=== PATIENT | male | born 1970 | race Caucasian/White ===

== ENCOUNTER 2018-04-29 08:57 | Observation (INO) | payer OTHER ==
[~2018-04-29] VITALS: Ht 162.6 cm; Wt 101.8 kg
[~2018-04-29 08:57] MED LIST: ALTACE10 MG PO; AMLODIPINE BESY10 MG PO; PANTOPRAZOLE SO40 MG PO
--- OUTSIDE RECORDS SUMMARY | 2018-04-29 09:00 | XMS REPORT | Clinical Summary ---
Author Author [facility] Address Unknown Phone Unavailable Care Team Providers Care Braille Translator Name Role Phone Asked, No Pcp PCP Unavailable Allergies No Known Allergies Medications End Date Status Medication Sig Dispensed Refills Start Date Active ramipril (ALTACE) 10 MG Take 10 mg by 0 capsule mouth daily. Active amLODIPine (NORVASC) 10 Take 10 mg by 0 mg tablet mouth daily. Active pantoprazole (PROTONIX) Take 20 mg by 0 20 MG EC tablet mouth daily. 12/22/2017 Discontinued acetaminophen-codeine TAKE ONE (1) 0 11/03/201 (TYLENOL WITH CODEINE #3) TABLET(S) BY 8 300-30 mg per tablet MOUTH EVERY FOUR TO SIX HOURS NEEDED FOR PAIN. 12/22/2017 Discontinued IBU 600 mg tablet TAKE ONE (1) 0 11/03/201 TABLET(S) BY 8 MOUTH EVERY EIGHT HOURS NEEDED FOR PAIN. 01/12/2018 Discontinued HYDROcodone-acetaminophen TAKE ONE (1) 0 (NORCO) 5-325 mg per TABLET(S) BY 8 tablet MOUTH EVERY FOUR HOURS NEEDED FOR PAIN. Active Problems Problem Noted Date Chondromalacia of left knee 12/22/2017 S/P arthroscopy of left knee 12/22/2017 Follow-up examination after orthopedic surgery 12/22/2017 Acute pain of left knee 11/25/2017 Work related injury 11/25/2017 Obesity (BMI 37.76) 11/25/2017 Acute lateral meniscus tear of left knee 11/25/2017 Acute internal derangement of left knee 11/25/2017 Encounters Care Team Description Date Type Specialty Oswaldo Feldman MD 02/21/2018 Telephone Orthopedic Surgery Oswaldo Feldman MD Acute pain of left knee (Primary Dx); Acute lateral meniscus tear of left knee, subsequent encounter; Acute internal derangement of left knee; Follow-up examination after orthopedic surgery; Work related injury; Chondromalacia of left knee; Obesity (BMI 37.76) 01/12/2018 Office Visit Orthopedic Surgery Oswaldo Feldman MD Chondromalacia of left knee (Primary Dx); Acute internal derangement of left knee; Work related injury; S/P arthroscopy of left knee; Follow-up examination after orthopedic surgery; Obesity (BMI 37.76) 12/22/2017 Office Visit Orthopedic Surgery Westley Mark MD 12/15/2017 Anesthesia General Surgery Event Oswaldo Feldman MD ARTHROSCOPY KNEE WITH PARTIAL SENOVECTOMY, NOTCHPLASTY, AND CHONDROPLASTY OF INTERIOR FEMUR - LEFT 12/15/2017 Surgery General Surgery Oswaldo Feldman MD 12/15/2017 Hospital General Surgery Encounter Oswaldo Feldman MD Preop testing 12/10/2017 Hospital Radiology Encounter Oswaldo Feldman MD Preop testing (Primary Dx) 12/10/2017 Pre-Admit Pre-Admission Testing Testing Appointment Oswaldo Feldman MD 12/06/2017 Prep for Orthopedic Surgery Surgery Oswalod Feldman MD Acute pain of left knee (Primary Dx); Work related injury; Obesity (BMI 37.76); Acute lateral meniscus tear of left knee, initial encounter; Acute internal derangement of left knee 11/25/2017 Office Visit Orthopedic Surgery after 04/28/2017 Family History Medical History Relation Name Comments Cancer Father Hypertension Father Arthritis Mother Relation Name Status Comments Father Mother Social History Date Tobacco Use Types Packs/Day Years Used Quit: 2013 Former Smoker 1 20 Smokeless Tobacco: Never Used Comments: vapes with 3% 1X month Alcohol Use Drinks/Week oz/Week Comments Yes 1X month Sex Assigned at Date Recorded Not on file Industry Job Start Date Occupation Not on file Not on file Not on file Travel End Travel History Travel Start No recent travel history available. Last Filed Vital Signs Time Taken Vital Sign Reading 12/15/2017 12:45 PM CDT Blood Pressure 119/67 12/15/2017 12:45 PM CDT Pulse 70 12/15/2017 12:45 PM CDT Temperature 36.4 C (97.6 F) 12/15/2017 12:45 PM CDT Respiratory Rate 13 12/15/2017 12:45 PM CDT Oxygen Saturation 97% - Inhaled Oxygen - Concentration 01/12/2018 1:10 PM CDT Weight 98.4 kg (217 lb) 01/12/2018 1:10 PM CDT Height 162.6 cm (5' 4") 01/12/2018 1:10 PM CDT Body Mass Index 37.25 Plan of Treatment Health Maintenance Due Date Last Done Comments INFLUENZA VACCINE 11/10/2017 Procedures Comments Procedure Name Priority Date/Time Associated Diagnosis LA AN ELECTIVE Routine 12/15/2017 SUPRAGLOTTIC AIRWAY 11:06 AM CDT Procedure Note - Sweetie Cheney MD - 12/15/2017 11:06 AM CDT Airway Date/Time: 12/15/2017 10:55 AM Performed by: SWEETIE CHENEY Authorized by: SWEETIE CHENEY Location: OR Urgency: Elective Anesthesio logist: SWEETIE CHENEY Performed by: anesthesio logist Preoxygena baldev with 100% O2: Yes C-spine Precaution s Maintained Throughout : Yes Mask Ventilatio n: Easy mask Final Airway Type: Supraglott ic airway Final LMA: Unique LMA Size: 4 Number of Attempts at Approach: 1 OPERATION, KNEE, 12/15/2017 ACL graft tear, sequela ARTHROSCOPIC 10:25 AM CDT XR CHEST 2 VW Routine 12/10/2017 Preop testing 3:23 PM CDT ECG 12-LEAD Routine 12/10/2017 Preop testing 2:16 PM CDT URINE CULTURE Routine 12/10/2017 2:00 PM CDT ZZESTIMATED GFR Routine 12/10/2017 1:43 PM CDT URINALYSIS SCREEN AND Routine 12/10/2017 Preop testing MICROSCOPY, WITH REFLEX 1:43 PM CDT TO CULTURE PARTIAL THROMBOPLASTIN Routine 12/10/2017 Preop testing TIME (PTT) 1:43 PM CDT PROTHROMBIN TIME WITH INR Routine 12/10/2017 Preop testing 1:43 PM CDT COMPREHENSIVE METABOLIC Routine 12/10/2017 Preop testing PANEL 1:43 PM CDT HC COMPLETE BLD COUNT Routine 12/10/2017 Preop testing W/AUTO DIFF 1:43 PM CDT XR KNEE 4+ VW LEFT Routine 11/25/2017 Acute pain of left knee 8:53 AM CDT after 04/28/2017 Results * XR Chest 2 Vw (12/10/2017 3:23 PM CDT) Narrative Performed At EXAMINATION:XR CHEST 2 VW [facility] CLINICAL HISTORY: Z01.818 Encounter for other preprocedural examination, Shortness of breath, pre op clearance COMPARISON:02/23/2013 IMPRESSION: No active disease in the chest. Lungs are clear. Cardiomediastinal silhouette is within normal limits. No effusion or pneumothorax noted. Visualized osseous structures are intact. [facility]-[id number] Procedure Note Interface, Radiology Results Incoming - 12/10/2017 3:42 PM CDT EXAMINATION: XR CHEST 2 VW CLINICAL HISTORY: Z01.818 Encounter for other preprocedural examination, Shortness of breath, pre op clearance COMPARISON: 02/23/2013 IMPRESSION: No active disease in the chest. Lungs are clear. Cardiomediastinal silhouette is within normal limits. No effusion or pneumothorax noted. Visualized osseous structures are intact. [facility]-[id number] Performing Organization Address [facility] Phone Number [facility] [address] [place] [address] * ECG 12 lead (12/10/2017 2:16 PM CDT) Ventricular rate 83 [facility] Atrial rate 83 [facility] LA interval 136 [facility] QRSD interval 98 [facility] QT interval 374 [facility] QTC interval 439 [facility] P axis 1 53 [facility] QRS axis 1 69 [facility] T wave axis 26 [facility] EKG impression Normal sinus rhythm-Normal [facility] MUSE ECG-In automated comparison with ECG of 20-JAN-2014 11:29,-Questionable change in QRS axis- Performing Organization Address [facility] Phone Number [facility] [employer] [address] [place] [address] * Urine culture (12/10/2017 2:00 PM CDT) Urine culture SEE COMMENTComment: [facility] DEPARTMENT OF Bacteriuria screen negative. PATHOLOGY AND GENOMIC MEDICINE Performing Organization Address City/[facility]/Zipcode Phone Number [place] [address] [place] [address] PATHOLOGY AND GENOMIC MEDICINE * Urinalysis screen and microscopy, with reflex to culture (12/10/2017 1:43 PM CDT) Specimen site Clean catch [facility] DEPARTMENT OF PATHOLOGY AND GENOMIC MEDICINE Color, UA Yellow [facility] DEPARTMENT OF PATHOLOGY AND GENOMIC MEDICINE Appearance, UA Clear [facility] DEPARTMENT OF PATHOLOGY AND GENOMIC MEDICINE Specific gravity, UA 1.029 1.001 - 1.035 [facility] DEPARTMENT OF PATHOLOGY AND GENOMIC MEDICINE pH, UA 5.0 5.0 - 8.5 [facility] DEPARTMENT OF PATHOLOGY AND GENOMIC MEDICINE Protein, UA Negative Negative [facility] DEPARTMENT OF PATHOLOGY AND GENOMIC MEDICINE Glucose, UA Negative Negative [facility] DEPARTMENT OF PATHOLOGY AND GENOMIC MEDICINE Ketones, UA Negative Negative [facility] DEPARTMENT OF PATHOLOGY AND GENOMIC MEDICINE Bilirubin, UA Negative Negative [facility] DEPARTMENT OF PATHOLOGY AND GENOMIC MEDICINE Blood, UA Small (A) Negative [facility] DEPARTMENT OF PATHOLOGY AND GENOMIC MEDICINE Nitrite, UA Negative Negative [facility] DEPARTMENT OF PATHOLOGY AND GENOMIC MEDICINE Urobilinogen, UA Negative <2.0 [facility] DEPARTMENT OF PATHOLOGY AND GENOMIC MEDICINE Leukocyte esterase, UA Negative Negative [facility] DEPARTMENT OF PATHOLOGY AND GENOMIC MEDICINE WBC, UA 1 0 - 1 /HPF [facility] DEPARTMENT OF PATHOLOGY AND GENOMIC MEDICINE RBC, UA 5 (A) 0 - 5 /HPF [facility] DEPARTMENT OF PATHOLOGY AND GENOMIC MEDICINE Bacteria, UA None seen None seen [facility] DEPARTMENT OF PATHOLOGY AND GENOMIC MEDICINE Yeast, UA None seen [facility] DEPARTMENT OF PATHOLOGY AND GENOMIC MEDICINE Yeast with pseudohyphae, None seen [facility] DEPARTMENT OF UA PATHOLOGY AND GENOMIC MEDICINE Calcium oxalate crystals, Few [facility] DEPARTMENT OF UA PATHOLOGY AND GENOMIC MEDICINE Specimen Urine Performing Organization Address City/State/Zipcode Phone Number [place] [address] [place] [address] PATHOLOGY AND GENOMIC MEDICINE * Estimated GFR (12/10/2017 1:43 PM CDT) GFR Non Af Amer >90 mL/min/1.73 m2 [facility] DEPARTMENT OF PATHOLOGY AND GENOMIC MEDICINE GFR Af Amer >90 mL/min/1.73 m2 [facility] DEPARTMENT OF Comment: PATHOLOGY AND Chronic kidney disease: <60 GENOMIC MEDICINE mL/min/1.73m2 Kidney failure: <15 mL/min/1.73m2 The estimated GFR is calculated from the IDTN-traceable Modification of Diet in Renal Disease Equation. The accuracy of the calculation is poor when the creatinine is normal. Calculated values >90 mL/min/1.73m2 are not reported. This equation has not been validated in children (<18 years), women, the elderly (>70 years), or ethnic groups other than Caucasians and Americans. Specimen Plasma specimen Performing Organization Address City/[facility] Phone Number [facility] [place] [address] PATHOLOGY AND [facility] * Partial thromboplastin time, activated (12/10/2017 1:43 PM CDT) PTT 31.8 23.0 - 36.0 sec [facility] DEPARTMENT OF Comment: PATHOLOGY AND PTT therapeutic range for GENOMIC MEDICINE unfractionated heparin is 61.0-112.0 seconds which corresponds to Anti-Xa 0.3-0.7 U/ml. Note:Change in Panic Value The PTT Panic Value is changing from 110 sec. to 100 sec. due to new instrumentation and reagents. Correlation studies have been performed to validate this result. Specimen Blood Performing Organization Address [facility] Phone Number [facility] [address] [place] [address] PATHOLOGY AND [facility] * Prothrombin time with INR (12/10/2017 1:43 PM CDT) Prothrombin time 12.8 12.0 - 15.0 sec [facility] DEPARTMENT OF PATHOLOGY AND [facility] INR 0.95 0.92 - 1.12 [facility] DEPARTMENT OF Comment: PATHOLOGY AND For patients on anticoagulant GENOMIC MEDICINE therapy, reference ranges below: Indication: INR Value Treatment of Venous Thrombosis, 2.0-3.0 pulmonary emboli, or prophylaxis of a venous thrombosis, or systemic emboli. High dose, high risk patients 3.0-4.5 with mechanical valves. NOTE:INR values over 3.0 are sometimes associated with gastrointestinal hemorrhage, especially values over 4.0. Specimen Blood Performing Organization Address [facility] Cent[facility]ode Phone Number [facility] DEPARTMENT OF [address] [place] [address] PATHOLOGY AND [facility] * CBC with platelet and differential (12/10/2017 1:43 PM CDT) WBC 9.4 4.2 - 11.0 k/uL [facility] DEPARTMENT OF PATHOLOGY AND GENOMIC MEDICINE RBC 5.04 4.04 - 5.86 m/uL [facility] DEPARTMENT OF PATHOLOGY AND GENOMIC MEDICINE HGB 15.9 13.0 - 17.3 g/dL [facility] DEPARTMENT OF PATHOLOGY AND GENOMIC MEDICINE HCT 47.1 (H) 34.0 - 45.0 % [facility] DEPARTMENT OF PATHOLOGY AND GENOMIC MEDICINE MCV 93.5 80.0 - 98.0 fL [facility] DEPARTMENT OF PATHOLOGY AND GENOMIC MEDICINE MCH 31.5 27.0 - 34.0 pg [facility] DEPARTMENT OF PATHOLOGY AND GENOMIC MEDICINE MCHC 33.8 31.5 - 36.5 g/dL [facility] DEPARTMENT OF PATHOLOGY AND GENOMIC MEDICINE RDW - SD 44.6 37.0 - 51.0 fL [facility] DEPARTMENT OF PATHOLOGY AND GENOMIC MEDICINE MPV 10.2 7.4 - 10.4 fL [facility] DEPARTMENT OF PATHOLOGY AND GENOMIC MEDICINE Platelet count 209 150 - 400 k/uL [facility] DEPARTMENT OF PATHOLOGY AND GENOMIC MEDICINE Nucleated RBC 0.00 /100 WBC [facility] DEPARTMENT OF PATHOLOGY AND GENOMIC MEDICINE Neutrophils 72.1 (H) 36.0 - 66.0 % [facility] DEPARTMENT OF PATHOLOGY AND GENOMIC MEDICINE Lymphocytes 17.8 (L) 24.0 - 44.0 % [facility] DEPARTMENT OF PATHOLOGY AND GENOMIC MEDICINE Monocytes 7.2 (H) 0.0 - 6.0 % [facility] DEPARTMENT OF PATHOLOGY AND GENOMIC MEDICINE Eosinophils 1.7 0.0 - 6.0 % [facility] DEPARTMENT OF PATHOLOGY AND GENOMIC MEDICINE Basophils 0.7 0.0 - 1.2 % [facility] DEPARTMENT OF PATHOLOGY AND GENOMIC MEDICINE Immature granulocytes 0.5 0.0 - 1.0 % [facility] DEPARTMENT OF PATHOLOGY AND GENOMIC MEDICINE Specimen Blood Performing Organization Address City/State/Zipcode Phone Number [facility] [address] [place] [address] PATHOLOGY AND GENOMIC MEDICINE * Comprehensive metabolic panel (12/10/2017 1:43 PM CDT) Sodium 139 135 - 150 mEq/L [facility] DEPARTMENT OF PATHOLOGY AND GENOMIC MEDICINE Potassium 3.8 3.5 - 5.0 mEq/L [facility] DEPARTMENT OF PATHOLOGY AND GENOMIC MEDICINE Chloride 103 98 - 112 mEq/L [facility] DEPARTMENT OF PATHOLOGY AND GENOMIC MEDICINE CO2 25 24 - 31 mmol/L [facility] DEPARTMENT OF PATHOLOGY AND GENOMIC MEDICINE Anion gap 11@ANIO 7 - 15 mEq/L [facility] DEPARTMENT OF PATHOLOGY AND GENOMIC MEDICINE BUN 15 7 - 18 mg/dL [facility] DEPARTMENT OF PATHOLOGY AND GENOMIC MEDICINE Creatinine 0.90 0.70 - 1.20 mg/dL [facility] DEPARTMENT OF PATHOLOGY AND GENOMIC MEDICINE Glucose 134 (H) 65 - 100 mg/dL [facility] DEPARTMENT OF PATHOLOGY AND GENOMIC MEDICINE Calcium 9.0 8.3 - 10.2 mg/dL [facility] DEPARTMENT OF PATHOLOGY AND GENOMIC MEDICINE Protein 7.0 6.3 - 8.3 g/dL [facility] DEPARTMENT OF PATHOLOGY AND GENOMIC MEDICINE Albumin 4.1 3.5 - 5.0 g/dL [facility] DEPARTMENT OF PATHOLOGY AND GENOMIC MEDICINE A/G ratio 1.4 0.7 - 3.8 [facility] DEPARTMENT OF PATHOLOGY AND GENOMIC MEDICINE Alkaline phosphatase 103 0 - 129 U/L [facility] DEPARTMENT OF PATHOLOGY AND GENOMIC MEDICINE AST 34 10 - 50 U/L [facility] DEPARTMENT OF PATHOLOGY AND GENOMIC MEDICINE ALT 47 5 - 50 U/L [facility] DEPARTMENT OF PATHOLOGY AND GENOMIC MEDICINE Total bilirubin 0.4 0.2 - 1.2 mg/dL [facility] DEPARTMENT OF PATHOLOGY AND GENOMIC MEDICINE Specimen Plasma specimen Performing Organization Address City/State/[facility]ode Phone Number [facility] DEPARTMENT OF [address] [place] [address] PATHOLOGY AND GENOMIC MEDICINE * XR Knee 4+ Vw Left (11/25/2017 8:53 AM CDT) Narrative Performed At [facility] Weightbearing AP and PA x-rays on both knees with a lateral x-ray of the left knee: There is evidence of an ACL reconstruction but there is no hardware in either the tibia or femur. Tunnels appear to be well positioned. There is very minimal arthritic change with well-maintained joint space Performing Organization Address City/State/Zipcode Phone Number [facility] [address] [place] [address] after 04/28/2017 Insurance Payer Benefit Subscriber ID Type Phone Address Plan / Group WORKERS COMP ABERCROMBI xxxxxxx Workers E MCDERMOTT Comp & W/C Advance Directives Patient has advance care planning documents on file. For more information, demetrice conroy contact: Olu Cates [address] [place] [address]
[2018-04-29] MEDS ORDERED: CEFOXITIN SOD 1 GM VIAL ONE (09:23)
[2018-04-29] MEDS ORDERED: IOPAMIDOL 610MG/1ML 300 MG/ML VIAL IV ONE (09:46)
[2018-04-29] MEDS ORDERED: LIDOCAINE HCL 2% LOCAL INJ 5 ML SDV VIAL INJ ONE (10:39)
[2018-04-29] MEDS ORDERED: EPHEDRINE SULFATE INJ 50 MG/10 ML SYR ONE (10:39)
[2018-04-29] MEDS ORDERED: PROPOFOL IV EMULSION 10 MG/ML 20 ML VIAL ONE (10:39)
[2018-04-29] MEDS ORDERED: SEVOFLURANE INHAL SOLN 250 ML PEN BTL ONE (10:39)
[2018-04-29] MEDS ORDERED: ONDANSETRON HCL INJ 2MG/ML 2ML 2 MG/ML VIAL ONE (10:39)
[2018-04-29] MEDS ORDERED: FENTANYL CITRATE/PF 100MCG/2 ML INJ ONE ×2 (11:01→15:35)
--- OUTSIDE RECORDS SUMMARY | 2018-04-29 11:21 | XMS REPORT | Clinical Summary ---
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 Visualized osseous structures are intact. [facility]-[id number] Procedure Note Interface, Radiology Results Incoming - 12/10/2017 3:42 PM CDT EXAMINATION: XR CHEST 2 VW CLINICAL HISTORY: Z01.818 Encounter for other preprocedural examination, Shortness of breath, pre op clearance COMPARISON: 02/23/2013 IMPRESSION: No active disease in the chest. Lungs are clear. Cardiomediastinal silhouette is within normal limits. No effusion or pneumothorax noted. Visualized osseous structures are intact. [id number] Performing Organization Address [facility] Phone Number [facility] [address] [place] [address] * ECG 12 lead (12/10/2017 2:16 PM CDT) Ventricular rate 83 [facility] MUSE Atrial rate 83 [facility] MUSE [place] interval 136 [facility] QRSD interval 98 [facility] QT interval 374 [facility] QTC interval 439 [facility] P axis 1 53 [facility] QRS axis 1 69 [facility] T wave axis 26 [facility] EKG impression Normal sinus rhythm-Normal [facility] MUSE ECG-In automated comparison with ECG of 20-JAN-2014 11:29,-Questionable change in QRS axis- Performing Organization Address [facility] Phone Number [facility] [address] [place] [address] * Urine culture (12/10/2017 2:00 PM CDT) Urine culture SEE COMMENTComment: [facility] DEPARTMENT OF Bacteriuria screen negative. PATHOLOGY AND GENOMIC MEDICINE Performing Organization Address City/[facility]/Zipcode Phone Number [address] [address] [place] [address] PATHOLOGY AND GENOMIC MEDICINE * Urinalysis screen and microscopy, with reflex to culture (12/10/2017 1:43 PM CDT) Specimen site Clean catch [facility] DEPARTMENT OF PATHOLOGY AND GENOMIC MEDICINE Color, UA Yellow [facility] DEPARTMENT OF PATHOLOGY AND GENOMIC MEDICINE Appearance, UA Clear [facility] DEPARTMENT OF PATHOLOGY AND GENOMIC MEDICINE Specific gravity, UA 1.029 1.001 - 1.035 [facility] DEPARTMENT OF PATHOLOGY AND GENOMIC MEDICINE pH, UA 5.0 5.0 - 8.5 [facility] DEPARTMENT OF PATHOLOGY AND GENOMIC MEDICINE Protein, UA Negative Negative [facility] DEPARTMENT OF PATHOLOGY AND GENOMIC MEDICINE Glucose, UA Negative Negative [facility] DEPARTMENT OF PATHOLOGY AND GENOMIC MEDICINE Ketones, UA Negative Negative [facility] DEPARTMENT OF PATHOLOGY AND GENOMIC MEDICINE Bilirubin, UA Negative Negative [facility] DEPARTMENT OF PATHOLOGY AND GENOMIC MEDICINE Blood, UA Small (A) Negative [facility] DEPARTMENT OF PATHOLOGY AND GENOMIC MEDICINE Nitrite, UA Negative Negative [facility] DEPARTMENT OF PATHOLOGY AND GENOMIC MEDICINE Urobilinogen, UA Negative <2.0 [facility] DEPARTMENT OF PATHOLOGY AND GENOMIC MEDICINE Leukocyte esterase, UA Negative Negative [facility] DEPARTMENT OF PATHOLOGY AND GENOMIC MEDICINE WBC, UA 1 0 - 1 /HPF [facility] DEPARTMENT OF PATHOLOGY AND GENOMIC MEDICINE RBC, UA 5 (A) 0 - 5 /HPF [facility] DEPARTMENT OF PATHOLOGY AND GENOMIC MEDICINE Bacteria, UA None seen None seen [facility] DEPARTMENT OF PATHOLOGY AND GENOMIC MEDICINE Yeast, UA None seen [facility] DEPARTMENT OF PATHOLOGY AND GENOMIC MEDICINE Yeast with pseudohyphae, None seen [facility] DEPARTMENT OF UA PATHOLOGY AND GENOMIC MEDICINE Calcium oxalate crystals, Few [facility] DEPARTMENT OF UA PATHOLOGY AND GENOMIC MEDICINE Specimen Urine Performing Organization Address City/State/Zipcode Phone Number [address] [place] [address] PATHOLOGY AND GENOMIC MEDICINE * Estimated GFR (12/10/2017 1:43 PM CDT) GFR Non Af Amer >90 mL/min/1.73 m2 [facility] DEPARTMENT OF PATHOLOGY AND GENOMIC MEDICINE GFR Af Amer >90 mL/min/1.73 m2 [facility] DEPARTMENT OF Comment: PATHOLOGY AND Chronic kidney disease: <60 GENOMIC MEDICINE mL/min/1.73m2 Kidney failure: <15 mL/min/1.73m2 The estimated GFR is calculated from the IDAK-traceable Modification of Diet in Renal Disease Equation. The accuracy of the calculation is poor when the creatinine is normal. Calculated values >90 mL/min/1.73m2 are not reported. This equation has not been validated in children (<18 years), women, the elderly (>70 years), or ethnic groups other than Caucasians and Americans. Specimen Plasma specimen Performing Organization Address City/[facility] Phone Number [facility] [address] PATHOLOGY AND [employer] [facility] * Partial thromboplastin time, activated (12/10/2017 1:43 PM CDT) PTT 31.8 23.0 - 36.0 sec [facility] DEPARTMENT OF Comment: PATHOLOGY AND PTT therapeutic range for GENOMIC MEDICINE unfractionated heparin is 61.0-112.0 seconds which corresponds to Anti-Xa 0.3-0.7 U/ml. Note:Change in Panic Value The PTT Panic Value is changing from 110 sec. to 100 sec. due to new instrumentation and reagents. Correlation studies have been performed to validate this result. Specimen Blood Performing Organization Address [facility] Phone Number [facility] [address] [place] [address] PATHOLOGY AND [employer] [facility] * Prothrombin time with INR (12/10/2017 1:43 PM CDT) Prothrombin time 12.8 12.0 - 15.0 sec [facility] DEPARTMENT OF PATHOLOGY AND [employer] [facility] INR 0.95 0.92 - 1.12 [facility] DEPARTMENT OF Comment: PATHOLOGY AND For patients on anticoagulant GENOMIC MEDICINE therapy, reference ranges below: Indication: INR Value Treatment of Venous Thrombosis, 2.0-3.0 pulmonary emboli, or prophylaxis of a venous thrombosis, or systemic emboli. High dose, high risk patients 3.0-4.5 with mechanical valves. NOTE:INR values over 3.0 are sometimes associated with gastrointestinal hemorrhage, especially values over 4.0. Specimen Blood Performing Organization Address [facility] Phone Number [facility] DEPARTMENT OF [address] [place] [address] PATHOLOGY AND [employer] [facility] * CBC with platelet and differential (12/10/2017 1:43 PM CDT) WBC 9.4 4.2 - 11.0 k/uL [facility] DEPARTMENT OF PATHOLOGY AND GENOMIC MEDICINE RBC 5.04 4.04 - 5.86 m/uL [facility] DEPARTMENT OF PATHOLOGY AND GENOMIC MEDICINE HGB 15.9 13.0 - 17.3 g/dL [facility] DEPARTMENT OF PATHOLOGY AND GENOMIC MEDICINE HCT 47.1 (H) 34.0 - 45.0 % [facility] DEPARTMENT OF PATHOLOGY AND GENOMIC MEDICINE MCV 93.5 80.0 - 98.0 fL [facility] DEPARTMENT OF PATHOLOGY AND GENOMIC MEDICINE MCH 31.5 27.0 - 34.0 pg [facility] DEPARTMENT OF PATHOLOGY AND GENOMIC MEDICINE MCHC 33.8 31.5 - 36.5 g/dL [facility] DEPARTMENT OF PATHOLOGY AND GENOMIC MEDICINE RDW - SD 44.6 37.0 - 51.0 fL [facility] DEPARTMENT OF PATHOLOGY AND GENOMIC MEDICINE MPV 10.2 7.4 - 10.4 fL [facility] DEPARTMENT OF PATHOLOGY AND GENOMIC MEDICINE Platelet count 209 150 - 400 k/uL [facility] DEPARTMENT OF PATHOLOGY AND GENOMIC MEDICINE Nucleated RBC 0.00 /100 WBC [facility] DEPARTMENT OF PATHOLOGY AND GENOMIC MEDICINE Neutrophils 72.1 (H) 36.0 - 66.0 % [facility] DEPARTMENT OF PATHOLOGY AND GENOMIC MEDICINE Lymphocytes 17.8 (L) 24.0 - 44.0 % [facility] DEPARTMENT OF PATHOLOGY AND GENOMIC MEDICINE Monocytes 7.2 (H) 0.0 - 6.0 % [facility] DEPARTMENT OF PATHOLOGY AND GENOMIC MEDICINE Eosinophils 1.7 0.0 - 6.0 % [facility] DEPARTMENT OF PATHOLOGY AND GENOMIC MEDICINE Basophils 0.7 0.0 - 1.2 % [facility] DEPARTMENT OF PATHOLOGY AND GENOMIC MEDICINE Immature granulocytes 0.5 0.0 - 1.0 % [facility] DEPARTMENT OF PATHOLOGY AND GENOMIC MEDICINE Specimen Blood Performing Organization Address City/State/Zipcode Phone Number [facility] [address] [place] [address] PATHOLOGY AND GENOMIC MEDICINE * Comprehensive metabolic panel (12/10/2017 1:43 PM CDT) Sodium 139 135 - 150 mEq/L [facility] DEPARTMENT OF PATHOLOGY AND GENOMIC MEDICINE Potassium 3.8 3.5 - 5.0 mEq/L [facility] DEPARTMENT OF PATHOLOGY AND GENOMIC MEDICINE Chloride 103 98 - 112 mEq/L [facility] DEPARTMENT OF PATHOLOGY AND GENOMIC MEDICINE CO2 25 24 - 31 mmol/L [facility] DEPARTMENT OF PATHOLOGY AND GENOMIC MEDICINE Anion gap 11@ANIO 7 - 15 mEq/L [facility] DEPARTMENT OF PATHOLOGY AND GENOMIC MEDICINE BUN 15 7 - 18 mg/dL [facility] DEPARTMENT OF PATHOLOGY AND GENOMIC MEDICINE Creatinine 0.90 0.70 - 1.20 mg/dL [facility] DEPARTMENT OF PATHOLOGY AND GENOMIC MEDICINE Glucose 134 (H) 65 - 100 mg/dL [facility] DEPARTMENT OF PATHOLOGY AND GENOMIC MEDICINE Calcium 9.0 8.3 - 10.2 mg/dL [facility] DEPARTMENT OF PATHOLOGY AND GENOMIC MEDICINE Protein 7.0 6.3 - 8.3 g/dL [facility] DEPARTMENT OF PATHOLOGY AND GENOMIC MEDICINE Albumin 4.1 3.5 - 5.0 g/dL [facility] DEPARTMENT OF PATHOLOGY AND GENOMIC MEDICINE A/G ratio 1.4 0.7 - 3.8 [facility] DEPARTMENT OF PATHOLOGY AND GENOMIC MEDICINE Alkaline phosphatase 103 0 - 129 U/L [facility] DEPARTMENT OF PATHOLOGY AND GENOMIC MEDICINE AST 34 10 - 50 U/L [facility] DEPARTMENT OF PATHOLOGY AND GENOMIC MEDICINE ALT 47 5 - 50 U/L [facility] DEPARTMENT OF PATHOLOGY AND GENOMIC MEDICINE Total bilirubin 0.4 0.2 - 1.2 mg/dL [facility] DEPARTMENT OF PATHOLOGY AND GENOMIC MEDICINE Specimen Plasma specimen Performing Organization Address City/State/[facility] Phone Number [facility] DEPARTMENT OF [address] [place] [address] PATHOLOGY AND GENOMIC MEDICINE * XR Knee [...] Organization Address City/State/Zipcode Phone Number [facility] [address] [place] [address] after 04/28/2017 Insurance Payer Benefit Subscriber ID Type Phone Address Plan / Group WORKERS COMP ABERCROMBI xxxxxxx Workers E MCDERMOTT Comp & W/C Advance Directives Patient has advance care planning documents on file. For more information, demetrice conroy contact: Olu Cates [address] [place] [address]
[2018-04-29 11:24] VITALS: BP 122/73
[2018-04-29] MEDS: SODIUM CHLORIDE 0.9% 1000ML 1,000 ML IV SCH ×2 (11:42→20:11)
[2018-04-29] MEDS ORDERED: CEFOXITIN 1GM/ NS 50ML 50 ML IV SCH (12:00)
--- NOTE | 2018-04-29 12:26 | Operative Report ---
DATE OF PROCEDURE: April 29, 2018 SERVICE: Urology. PREOPERATIVE DIAGNOSES: 1. Microscopic hematuria. 2. Urinary urgency and frequency. 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 OPERATION PERFORMED: Transurethral resection of bladder tumor approximately 2.5 mm to 3.0 mm in size. INDICATIONS: This patient is a 48-year-old white male who had an initial complaint of urinary urgency, frequency and occasional episodes of urgency incontinence. During the course of the evaluation, the patient had microscopic hematuria discovered at the time of his initial office visit. The patient had a negative FISH cytology. He had a CT scan with and without oral and IV contrast that revealed a tiny stone in the left kidney. There was no evidence at that time of malignancy or hydronephrosis, and there were some small calcifications in the prostate. The patient declined having a cystoscopy under local anesthesia in the office. For further details, it should be noted that patient has a past medical history of smoking. Please see the history and physical. The procedure was done in the following fashion. DESCRIPTION OF PROCEDURE: The patient was taken to the operating room and placed under general anesthesia, dressed and draped with Hibiclens in lithotomy position in the usual fashion. The 22[place] cystoscope was initially inserted with the visual obturator and 30-degree oblique lens. No urethral strictures were encountered. The sphincter and verumontanum were intact. The prostate was estimated at about 20 grams. Clear efflux was seen from both ureteral orifices. However, in the trigone I saw a small tumor. The tumor was about 2.5mm to 3mm in size. It was kind of yellowish in appearance, but it was papillary and this was near but not involving the right ureteral orifice and the tumor appeared to be on the trigone. The trigone was very close to the bladder neck. I switched over to the 70-degree oblique lens, and no other bladder tumors were identified. The bladder had very mild trabeculation. I then switched over to the 22-[place] Olympus resectoscope. This was again inserted using the visual obturator and the 30-degree oblique lens. Once this was accomplished, I then switched over to the 30-degree oblique lens with the resectoscope Vogt unit. The patient was appropriately grounded. The settings were 140 for cutting and 80 for coagulation. The tumor was then transurethrally resected using the resectoscope loop with sterile water which was used throughout the procedure. After the tumor was resected, I then had the tumor fall directly out of the bladder when I emptied the bladder with the resectoscope. I then went back and worked for hemostasis with the electrocautery unit until I saw no more bleeding. Both ureteral orifices were intact. I then removed the resectoscope and inserted a 22-[place] Gardner with 10 mL in the balloon. The patient had some [id number] urine in the efflux. The plan at this time is to watch the patient overnight on IV antibiotics and remove the Gardner catheter in the morning for a trial of voiding. Job#: [id number] EV MTDD
[2018-04-29 12:31] VITALS: BP 122/73
[2018-04-29 12:40] VITALS: BP 122/73
[2018-04-29 15:33] VITALS: BP 133/73
[2018-04-29] MEDS ORDERED: MIDAZOLAM HCL 2 MG/2 ML VIAL ONE (15:35)
[2018-04-29] MEDS ORDERED: KETAMINE HCL INJ 50 MG/ML 10 ML VIAL ONE (15:35)
[2018-04-29] MEDS: HYDROCODONE/APAP 7.5MG-325MG 1 EA TAB PO PRN (16:18)
[2018-04-29] MEDS: CEFOXITIN 1GM/ NS 50ML 50 ML IV SCH ×2 (16:37→21:41)
[2018-04-29] MEDS: DOCUSATE SODIUM 100 MG CAP PO SCH (16:37)
--- NOTE | 2018-04-29 19:10 | NUR ---
REPORT RECEIVED FROM OFF GOING NURSE, PT RESTING IN BED ALERT AND ORIENTED, FAMILY AT BEDSIDE, INDWELLING PERSON NOTED AND PATENT, BED LOCKED AND LOW, INSTRUCTED TO CALL WITH NEEDS, IV INFUSING PER ORDER, TELEMETRY IN PLACE, CALL LIGHT IN REACH
[2018-04-29 20:00] VITALS: BP 110/57
[2018-04-29 20:20] VITALS: BP 110/57
[2018-04-29] MEDS ORDERED: PANTOPRAZOLE SOD 40 MG TABEC PO SCH ×2 (21:00)
[2018-04-29] MEDS ORDERED: AMLODIPINE BESYLATE 10 MG TAB PO SCH (21:00)
[2018-04-30] VITALS: BP 97/54
[2018-04-30] MEDS: HYDROCODONE/APAP 7.5MG-325MG 1 EA TAB PO PRN (01:03)
[2018-04-30 04:00] VITALS: BP 103/58
[2018-04-30] MEDS: CEFOXITIN 1GM/ NS 50ML 50 ML IV SCH ×2 (04:00→09:48)
[2018-04-30] MEDS: SODIUM CHLORIDE 0.9% 1000ML 1,000 ML IV SCH (05:02)
--- NOTE | 2018-04-30 07:06 | NUR ---
PT RESTING IN BED ALERT AND ORIENTED, NO DISTRESS NOTED, CALL LIGHT IN REACH, AT BEDSIDE, IV INFUSING PER ORDER, PT REMINDED OF ORDER TO REMOVE PERSON, PT VOICES UNDERSTANDING, DENIES NEEDS
[2018-04-30 07:54] VITALS: BP 135/63
--- NOTE | 2018-04-30 08:20 | NUR ---
GENA coe Gardner's catheter by [address]755H, Patient urinated by this time, no discomfort verbalized, keep monitoring
[2018-04-30] MEDS: DOCUSATE SODIUM 100 MG CAP PO SCH (08:36)
[2018-04-30] MEDS ORDERED: RAMIPRIL 5 MG CAP PO SCH (09:00)
[2018-04-30] MEDS ORDERED: NON-FORMULARY MEDICATION (Ramipril (Altace) 10 MG) PO SCH (09:00)
[2018-04-30 10:22] VITALS: BP 135/63
[2018-04-30] MEDS ORDERED: MACROBID 100 M100 MG PO (11:46)
[2018-04-30 11:55] VITALS: BP 118/63
--- NOTE | 2018-04-30 12:44 | NUR ---
patient discharged home, Urine is yellow-clear in color, he urinated X2 after took michaels out, no discomfort verbalized, IV canula removed with tip intact, no ss of infiltration noted, all belongings taken with patient, patient aware about f/up appointment with Dr Mo, denies any pain, no distress noted, transported via wheelchair to [facility]
--- NOTE | 2018-04-30 12:45 | Progress Note ---
DATE: April 30, 2018 DISCHARGE PROGRESS NOTE The patient is now 1 day status post transurethral resection of a bladder tumor of unknown behavior. The tumor was about 2.5 mm to 3 mm in size and located on the trigone near, but not involving the right ureteral orifice. The patient tolerated procedure well and left the operating room with a Gardner catheter to gravity drainage. The Gardner catheter was removed this morning. The patient states he is now voiding clear urine without difficulty. My plan at this time is to discharge the patient on Macrobid 100 mg p.o. twice daily, #20. He will have return appointment to see me again in 2 weeks to go with the results of the final pathology report. Job#: [id number] LORETO
--- NOTE | 2018-04-30 12:52 | NUR ---
SOCIAL WORK INITIAL ASSESSMENT Gas Manager to bedside to discuss plan of care with patient/family. CM/SW role and care transitions discussed. Anticipated discharge plan discussed along with duration of care. CM/SW discussed patients right to make decisions in care. CM/SW work hours given. 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 Name and number was also written on the patients whiteboard. Patient verbalized understanding of discussion. CM will follow-up with ongoing discharge and transition of care needs.
== END 2018-04-30 12:42 | disposition home or self-care (01) ==
LOC: OR 08:57 → PACU V 11:14 → IMCU 11:25
PROVIDERS: ADMIT Urology; ATTEND Urology
DX: C67.0 Malignant neoplasm of trigone of bladder (principal); R31.29 Other microscopic hematuria; I10 Essential (primary) hypertension; K21.9 Gastro-esophageal reflux disease without esophagitis; E66.9 Obesity, unspecified; Z68.38 Body mass index [BMI] 38.0-38.9, adult; Z80.8 Family history of malignant neoplasm of other organs or systems; Z82.49 Family history of ischemic heart disease and other diseases of the circulatory system; Z82.5 Family history of asthma and other chronic lower respiratory diseases; Z80.42 Family history of malignant neoplasm of prostate; Z80.1 Family history of malignant neoplasm of trachea, bronchus and lung; N40.1 Benign prostatic hyperplasia with lower urinary tract symptoms; N39.41 Urge incontinence; R35.0 Frequency of micturition; Z87.442 Personal history of urinary calculi
CPT/HCPCS: 52235; 88307; 88313; 93005; G0378 ×2; J0694; J2001; J2250; J2405; J2704; J7030 ×2; Q9967; S0164

== ENCOUNTER → 2018-07-22 | Day surgery (SDC) | payer OTHER ==
[2018-07-18 09:31] LABS: BASOPHILS # (AUTO) 0.1 (0.0-0.1); BASOPHILS % 0.8 % (0.0-1.0); EOSINOPHILS # (AUTO) 0.2 (0.0-0.4); EOSINOPHILS % 2.5 % (0.0-6.0); HEMATOCRIT 45.3 % (38.2-49.6); HEMOGLOBIN 15.3 g/dL (14.0-18.0); LYMPHOCYTES # (AUTO) 1.7 (1.0-3.2); LYMPHOCYTES % 23.6 % (18.0-39.1); MEAN CORPUSCULAR HEMOGLOBIN 31.2 pg (28-32); MEAN CORPUSCULAR HGB CONC 33.8 g/dL (31-35); MEAN CORPUSCULAR VOLUME 92.4 fL (81-99); MONOCYTES # (AUTO) 0.6 (0.2-0.8); MONOCYTES % 8.3 % (4.4-11.3); NEUTROPHILS # (AUTO) 4.7 (2.1-6.9); NEUTROPHILS % 64.3 % (38.7-80.0); PLATELET COUNT 204 x10e3/uL (140-360); RED CELL DISTRIBUTION WIDTH 13.1 % (11.7-14.4)
--- NOTE | 2018-07-18 09:56 | Diagnostic Imaging Report ---
EXAMINATION: CHEST 2 VIEWS INDICATION: Preop. Chest pain. Cystoscopy. ^PREOP ^[id number] ^[id number] COMPARISON: None FINDINGS: TUBES and LINES: None. LUNGS: Lungs are well inflated. Lungs are clear. There is no evidence of pneumonia or pulmonary edema. PLEURA: No pleural effusion or pneumothorax. HEART AND MEDIASTINUM: The cardiomediastinal silhouette is unremarkable. BONES AND SOFT TISSUES: No acute osseous lesion. Soft tissues are unremarkable. UPPER ABDOMEN: No free air under the diaphragm. IMPRESSION: No acute thoracic abnormality. Signed by: Dr. Jameson Anderson M.D. on 07/18/2018 9:52 AM
[2018-07-18 10:06] LABS: INR 0.82; PROTHROMBIN TIME 11.8 seconds (11.9-14.5)
[2018-07-18 10:07] LABS: PARTIAL THROMBOPLASTIN TIME 31.1 seconds (23.8-35.5)
[2018-07-18 10:08] LABS: ALANINE AMINOTRANSFERASE 38 IU/L (0-55); ALBUMIN 4.3 g/dL (3.5-5.0); ALBUMIN/GLOBULIN RATIO 1.4 (0.8-2.0); ALKALINE PHOSPHATASE 105 IU/L (40-150); BLOOD UREA NITROGEN 15 mg/dL (7-26); BUN/CREATININE RATIO 16 (6-25); CALCIUM 9.5 mg/dL (8.4-10.2); CARBON DIOXIDE 24 mmol/L (22-29); CHLORIDE 107 mmol/L (98-107); CREATININE, SERUM 0.96 mg/dL (0.72-1.25); EST GLOMERULAR FILTRATION RATE > 60 ML/MIN (60-); GLUCOSE 89 mg/dL (74-118); SODIUM 139 mmol/L (136-145)
[~2018-07-22] MED LIST changes: +CEFOXITIN 1GM/ D5W 50ML 50 ML IV ONE; +DEXAMETHASONE SOD PHOS INJ 4 MG/ML VIAL ONE; +FENTANYL CITRATE/PF 100MCG/2 ML INJ ONE; +LIDOCAINE HCL 2% LOCAL INJ 5 ML SDV VIAL INJ ONE; +MACROBID 100 M100 MG PO; +MIDAZOLAM HCL 2 MG/2 ML VIAL ONE; +MYRBETRIQ50 MG PO; +ONDANSETRON HCL INJ 2MG/ML 2ML 2 MG/ML VIAL ONE; +PROPOFOL IV EMULSION 10 MG/ML 20 ML VIAL ONE; +SEVOFLURANE INHAL SOLN 250 ML PEN BTL ONE
--- OUTSIDE RECORDS SUMMARY | 2018-07-22 08:48 | XMS REPORT | Clinical Summary ---
Author Author [facility] Address Unknown Phone Unavailable Care Team Providers Care Critical Care Physician Assistant Name Role Phone Asked, No Pcp PCP [...] knee 11/25/2017 Office Visit Orthopedic Surgery after 07/21/2017 Family History Medical History Relation Name Comments [...] Due Date Last Done Comments INFLUENZA VACCINE 11/10/2018 Procedures Comments Procedure Name Priority Date/Time Associated Diagnosis SD AN ELECTIVE Routine 12/15/2017 SU[address]IC AIRWAY 11:06 [...] of left knee 8:53 AM CDT after 07/21/2017 Results * XR Chest 2 Vw (12/10/2017 3:23 PM CDT) Narrative Performed At EXAMINATION:XR CHEST 2 VW [facility] CLINICAL HISTORY: Z01.818 Encounter for other preprocedural examination, Shortness of breath, pre op clearance COMPARISON:02/23/2013 IMPRESSION: No active disease in the chest. Lungs are clear. Cardiomediastinal silhouette is within normal limits. No effusion or pneumothorax noted. Visualized osseous structures are intact. [id number] Procedure Note Interface, Radiology Results Incoming - 12/10/2017 3:42 PM CDT EXAMINATION: XR CHEST 2 VW CLINICAL HISTORY: Z01.818 Encounter for other preprocedural examination, Shortness of breath, pre op clearance COMPARISON: 02/23/2013 IMPRESSION: No active disease in the chest. Lungs are clear. Cardiomediastinal silhouette is within normal limits. No effusion or pneumothorax noted. Visualized osseous structures are intact. [id number] Performing Organization Address [facility] Phone Number [facility] [address] [place] [address] * ECG 12 lead (12/10/2017 2:16 PM CDT) Ventricular rate 83 [facility] Atrial rate 83 [facility] SD interval 136 [facility] QRSD interval 98 [facility] QT interval 374 [facility] QTC interval 439 [facility] P axis 1 53 [facility] QRS axis 1 69 [facility] T wave axis 26 [facility] EKG impression Normal sinus rhythm-Normal [facility] MUSE ECG-In automated comparison with ECG of 20-JAN-2014 11:29,-Questionable change in QRS axis- Performing Organization Address [facility] Phone Number [facility] [address] [place] [address] * Urine culture (12/10/2017 2:00 PM CDT) Urine culture SEE COMMENTComment: [facility]MENT OF Bacteriuria screen negative. PATHOLOGY AND GENOMIC MEDICINE Performing Organization Address City/[facility]/Zipcode Phone Number [place] [address] [place] [address] PATHOLOGY AND GENOMIC MEDICINE * Urinalysis screen and microscopy, with reflex to culture (12/10/2017 1:43 PM CDT) Specimen site Clean catch [facility] OF PATHOLOGY AND GENOMIC MEDICINE Color, UA Yellow [facility] OF PATHOLOGY AND GENOMIC MEDICINE Appearance, UA Clear [facility] OF PATHOLOGY AND GENOMIC MEDICINE Specific gravity, UA 1.029 1.001 - 1.035 [facility] OF PATHOLOGY AND GENOMIC MEDICINE pH, UA 5.0 5.0 - 8.5 [facility] OF PATHOLOGY AND GENOMIC MEDICINE Protein, UA Negative Negative [facility] OF PATHOLOGY AND GENOMIC MEDICINE Glucose, UA Negative Negative [facility] OF PATHOLOGY AND GENOMIC MEDICINE Ketones, UA Negative Negative [facility]MENT OF PATHOLOGY AND GENOMIC MEDICINE Bilirubin, UA Negative Negative [facility] OF PATHOLOGY AND GENOMIC MEDICINE Blood, UA Small (A) Negative [facility] OF PATHOLOGY AND GENOMIC MEDICINE Nitrite, UA Negative Negative [facility]MENT OF PATHOLOGY AND GENOMIC MEDICINE Urobilinogen, UA Negative <2.0 [facility]MENT OF PATHOLOGY AND GENOMIC MEDICINE Leukocyte esterase, UA Negative Negative [facility] OF PATHOLOGY AND GENOMIC MEDICINE WBC, UA 1 0 - 1 /HPF [facility] OF PATHOLOGY AND GENOMIC MEDICINE RBC, UA 5 (A) 0 - 5 /HPF [facility] OF PATHOLOGY AND GENOMIC MEDICINE Bacteria, UA None seen None seen [facility] OF PATHOLOGY AND GENOMIC MEDICINE Yeast, UA None seen [facility]MENT OF PATHOLOGY AND GENOMIC MEDICINE Yeast with pseudohyphae, None seen [facility] OF UA PATHOLOGY AND GENOMIC MEDICINE Calcium oxalate crystals, Few [facility] OF UA PATHOLOGY AND GENOMIC MEDICINE Specimen Urine Performing Organization Address City/State/Zipcode Phone Number [place] [address] [place] [address] PATHOLOGY AND GENOMIC MEDICINE * Estimated GFR (12/10/2017 1:43 PM CDT) GFR Non Af Amer >90 mL/min/1.73 m2 [facility] PATHOLOGY AND GENOMIC MEDICINE GFR Af Amer >90 mL/min/1.73 m2 [facility] Comment: PATHOLOGY AND Chronic kidney disease: <60 GENOMIC MEDICINE mL/min/1.73m2 Kidney failure: <15 mL/min/1.73m2 The estimated GFR is calculated from the IDOR-traceable Modification of Diet in Renal Disease Equation. The accuracy of the calculation is poor when the creatinine is normal. Calculated values >90 mL/min/1.73m2 are not reported. This equation has not been validated in children (<18 years), women, the elderly (>70 years), or ethnic groups other than Caucasians and Americans. Specimen Plasma specimen Performing Organization Address City/[facility]ode Phone Number [facility] [place] [address] PATHOLOGY AND [facility] * Partial thromboplastin time, activated (12/10/2017 1:43 PM CDT) PTT 31.8 23.0 - 36.0 sec [facility] OF Comment: PATHOLOGY AND PTT therapeutic range for GENOMIC MEDICINE unfractionated heparin is 61.0-112.0 seconds which corresponds to Anti-Xa 0.3-0.7 U/ml. Note:Change in Panic Value The PTT Panic Value is changing from 110 sec. to 100 sec. due to new instrumentation and reagents. Correlation studies have been performed to validate this result. Specimen Blood Performing Organization Address [facility] Phone Number [facility] [address] [place] [address] PATHOLOGY AND [facility] * Prothrombin time with INR (12/10/2017 1:43 PM CDT) Prothrombin time 12.8 12.0 - 15.0 sec [facility] OF PATHOLOGY AND [facility] INR 0.95 0.92 - 1.12 [facility] Comment: PATHOLOGY AND For patients on anticoagulant GENOMIC MEDICINE therapy, reference ranges below: Indication: INR Value Treatment of Venous Thrombosis, 2.0-3.0 pulmonary emboli, or prophylaxis of a venous thrombosis, or systemic emboli. High dose, high risk patients 3.0-4.5 with mechanical valves. NOTE:INR values over 3.0 are sometimes associated with gastrointestinal hemorrhage, especially values over 4.0. Specimen Blood Performing Organization Address [facility] Centercode Phone Number [facility] DE[facility]MENT OF [address] [place] [address] PATHOLOGY AND [facility] * CBC with platelet and differential (12/10/2017 1:43 PM CDT) WBC 9.4 4.2 - 11.0 k/uL [facility] OF PATHOLOGY AND GENOMIC MEDICINE RBC 5.04 4.04 - 5.86 m/uL [facility]MENT OF PATHOLOGY AND GENOMIC MEDICINE HGB 15.9 13.0 - 17.3 g/dL [facility] OF PATHOLOGY AND GENOMIC MEDICINE HCT 47.1 (H) 34.0 - 45.0 % [facility] DE[facility]MENT OF PATHOLOGY AND GENOMIC MEDICINE MCV 93.5 80.0 - 98.0 fL [facility] DE[facility]MENT OF PATHOLOGY AND GENOMIC MEDICINE MCH 31.5 27.0 - 34.0 pg [facility] DE[facility]MENT OF PATHOLOGY AND GENOMIC MEDICINE MCHC 33.8 31.5 - 36.5 g/dL [facility] DE[facility]MENT OF PATHOLOGY AND GENOMIC MEDICINE RDW - SD 44.6 37.0 - 51.0 fL [facility] DE[facility]MENT OF PATHOLOGY AND GENOMIC MEDICINE MPV 10.2 7.4 - 10.4 fL [facility]MENT OF PATHOLOGY AND GENOMIC MEDICINE Platelet count 209 150 - 400 k/uL [facility] DE[facility]MENT OF PATHOLOGY AND GENOMIC MEDICINE Nucleated RBC 0.00 /100 WBC [facility] DE[facility]MENT OF PATHOLOGY AND GENOMIC MEDICINE Neutrophils 72.1 (H) 36.0 - 66.0 % [facility]MENT OF PATHOLOGY AND GENOMIC MEDICINE Lymphocytes 17.8 (L) 24.0 - 44.0 % [facility]MENT OF PATHOLOGY AND GENOMIC MEDICINE Monocytes 7.2 (H) 0.0 - 6.0 % [facility]MENT OF PATHOLOGY AND GENOMIC MEDICINE Eosinophils 1.7 0.0 - 6.0 % [facility]MENT OF PATHOLOGY AND GENOMIC MEDICINE Basophils 0.7 0.0 - 1.2 % [facility] DE[facility]MENT OF PATHOLOGY AND GENOMIC MEDICINE Immature granulocytes 0.5 0.0 - 1.0 % [facility] DE[facility]MENT OF PATHOLOGY AND GENOMIC MEDICINE Specimen Blood Performing Organization Address City/State/Zipcode Phone Number [facility] [address] [place] [address] PATHOLOGY AND GENOMIC MEDICINE * Comprehensive metabolic panel (12/10/2017 1:43 PM CDT) Sodium 139 135 - 150 mEq/L [facility]MENT OF PATHOLOGY AND GENOMIC MEDICINE Potassium 3.8 3.5 - 5.0 mEq/L [facility] DE[facility]MENT OF PATHOLOGY AND GENOMIC MEDICINE Chloride 103 98 - 112 mEq/L [facility]MENT OF PATHOLOGY AND GENOMIC MEDICINE CO2 25 24 - 31 mmol/L [facility] DEPARTMENT OF PATHOLOGY AND GENOMIC MEDICINE Anion gap 11@ANIO 7 - 15 mEq/L [facility] DEPARTMENT OF PATHOLOGY AND GENOMIC MEDICINE BUN 15 7 - 18 mg/dL [facility] DE[facility]MENT OF PATHOLOGY AND GENOMIC MEDICINE Creatinine 0.90 0.70 - 1.20 mg/dL [facility]MENT OF PATHOLOGY AND GENOMIC MEDICINE Glucose 134 (H) 65 - 100 mg/dL [facility]MENT OF PATHOLOGY AND GENOMIC MEDICINE Calcium 9.0 8.3 - 10.2 mg/dL [facility]MENT OF PATHOLOGY AND GENOMIC MEDICINE Protein 7.0 6.3 - 8.3 g/dL [facility]MENT OF PATHOLOGY AND GENOMIC MEDICINE Albumin 4.1 3.5 - 5.0 g/dL [facility] DE[facility]MENT OF PATHOLOGY AND GENOMIC MEDICINE A/G ratio 1.4 0.7 - 3.8 [facility] DE[facility]MENT OF PATHOLOGY AND GENOMIC MEDICINE Alkaline phosphatase 103 0 - 129 U/L [facility] DEPARTMENT OF PATHOLOGY AND GENOMIC MEDICINE AST 34 10 - 50 U/L [facility] DE[facility]MENT OF PATHOLOGY AND GENOMIC MEDICINE ALT 47 5 - 50 U/L [facility] DEPARTMENT OF PATHOLOGY AND GENOMIC MEDICINE Total bilirubin 0.4 0.2 - 1.2 mg/dL [facility] DE[facility]MENT OF PATHOLOGY AND GENOMIC MEDICINE Specimen Plasma specimen Performing Organization Address City/State/[facility]ercode Phone Number [facility] OF [address] [place] [address] PATHOLOGY AND GENOMIC MEDICINE * XR Knee [...] Organization Address City/State/Zipcode Phone Number [facility] [address] [place] [address] after 07/21/2017 Insurance Payer Benefit Subscriber ID Type Phone Address Plan / Group WORKERS COMP ABERCROMBI xxxxxxx Workers E MCDERMOTT Comp & W/C Advance Directives Patient has advance care planning documents on file. For more information, demetrice conroy contact: Olu Cates [address] [place] [address]
--- OUTSIDE RECORDS SUMMARY | 2018-07-22 08:48 | XMS REPORT ---
Author Author [facility] Address Unknown Phone Unavailable Care Team Providers Care Therapy Administrative Assistant Name Role Phone NILDA HALL Unavailable Unavailable Problems This patient has no known problems. Allergies, Adverse Reactions, Alerts This patient has no known allergies or adverse reactions. Medications This patient has no known medications. Results Test Description Test Time Test Comments Text Results Atomic Results Result Comments CHEST 2 VIEWS 2018-07-18 09:52:00 [place] [address] Patient Name: ANJALI GOMEZ MR #: [id number] : 1970 Age/Sex: 48/M Req #: [id number] Adm Physician: Ordered by: NILDA HALL MD Report #: [id number] Location: OR Room/Bed: Procedure: [id number] DX/CHEST 2 VIEWS Exam Date: 07/18/18 Exam Time: 909 REPORT STATUS: Signed EXAMINATION: CHEST 2 VIEWS INDICATION: Preop. C hest pain. Cystoscopy. PREOP [id number] COMPARISON: None FINDINGS: TUBES and LINES: None. LUNGS: Lungs are well inflated. Lungs are clear. There is no evidence of pneumonia or pulmonary edema. PLEURA: No pleural effusion or pneumothorax. HEART AND MEDIASTINUM: The cardiomediastinal silhouette is unremarkable. BONES AND SOFT TISSUES: No acute osseous lesion. Soft tissues are unremarkable. UPPER ABDOMEN: No free air under the diaphragm. IMPRESSION: No acute thoracic abnormality. Signed by: Dr. Jameson Anderson M.D. on 07/18/2018 9:52 AM Dictated By: JAMESON ANDERSON MD, MD 1 Transcribed By: SELWYN on 07/18/18951 COPY TO: NILDA HALL MD
[2018-07-22 11:45] VITALS: BP 100/70
--- NOTE | 2018-07-22 16:52 | Operative Report ---
DATE OF PROCEDURE: 07/22/2018 SURGEON: Odilon Cleveland MD PREOPERATIVE DIAGNOSIS: Personal history of bladder cancer. POSTOPERATIVE DIAGNOSIS: Personal history of bladder cancer. OPERATION PERFORMED: Cystoscopy. ANESTHESIA: General. INDICATIONS: This patient is a 48-year-old white male, who initially presented to me with hematuria. He went on to have a CT scan and he refused to have cystoscopy without general anesthesia. At the time of his cystoscopy in April, the patient was found to have a bladder cancer. This was transurethrally resected, the tumor was well differentiated and noninvasive. The patient returns today for his first quarterly followup cystoscopy. For further details, please refer to the history and physical. The procedure was done in the following fashion. PROCEDURE IN DETAIL: The patient was taken to the operating room, placed under general anesthesia, and dressed and draped with Hibiclens in lithotomy position in the usual fashion. Cystourethroscopy was performed with a 22-English Olympus rigid cystoscope with the 30-degree oblique lens and video camera attachment. No urethral strictures were encountered. The sphincter and verumontanum were intact. The prostate was estimated between 20 and 30 g. Clear efflux was seen from both ureteral orifices. The bladder was mildly trabeculated. There was no evidence of any recurrent bladder tumors whatsoever and I did not see any evidence of bladder calculi either. The bladder was emptied and cystoscope withdrawn. The patient tolerated the procedure well and left the operating room in good condition. He will have return appointment to see me again in three months to make arrangements for a followup cystoscopy. Odilon Cleveland MD [facility] /[id number]
== END | disposition home or self-care (01) ==
LOC: OR 08:43
PROVIDERS: ATTEND Urology
DX: Z08 Encounter for follow-up examination after completed treatment for malignant neoplasm (principal); Z85.51 Personal history of malignant neoplasm of bladder; N32.89 Other specified disorders of bladder; N39.41 Urge incontinence; N40.1 Benign prostatic hyperplasia with lower urinary tract symptoms; N20.0 Calculus of kidney; N35.014 Post-traumatic urethral stricture, male, unspecified; K64.4 Residual hemorrhoidal skin tags; I10 Essential (primary) hypertension; E66.9 Obesity, unspecified; K42.9 Umbilical hernia without obstruction or gangrene; G47.33 Obstructive sleep apnea (adult) (pediatric); K21.9 Gastro-esophageal reflux disease without esophagitis; Z01.812 Encounter for preprocedural laboratory examination; Z01.818 Encounter for other preprocedural examination; Z80.42 Family history of malignant neoplasm of prostate
CPT/HCPCS: 36415; 52000; 71046; 80053; 85025; 85610; 85730; J1100; J2001; J2250; J2405; J2704

== ENCOUNTER → 2018-10-28 | Day surgery (SDC) | payer OTHER ==
[2018-10-25 13:22] LABS: BASOPHILS # (AUTO) 0.1 (0.0-0.1); BASOPHILS % 0.8 % (0.0-1.0); EOSINOPHILS # (AUTO) 0.3 (0.0-0.4); EOSINOPHILS % 3.1 % (0.0-6.0); HEMATOCRIT 45.3 % (38.2-49.6); HEMOGLOBIN 15.5 g/dL (14.0-18.0); LYMPHOCYTES # (AUTO) 1.8 (1.0-3.2); LYMPHOCYTES % 20.9 % (18.0-39.1); MEAN CORPUSCULAR HGB CONC 34.2 g/dL (31-35); MEAN CORPUSCULAR VOLUME 90.6 fL (81-99); MONOCYTES # (AUTO) 0.6 (0.2-0.8); MONOCYTES % 6.9 % (4.4-11.3); NEUTROPHILS # (AUTO) 5.7 (2.1-6.9); NEUTROPHILS % 67.6 % (38.7-80.0); PLATELET COUNT 223 x10e3/uL (140-360)
[2018-10-25 13:41] LABS: INR 0.89; PROTHROMBIN TIME 12.5 seconds (11.9-14.5)
[2018-10-25 13:42] LABS: PARTIAL THROMBOPLASTIN TIME 30.9 seconds (23.8-35.5)
[2018-10-25 13:52] LABS: ALANINE AMINOTRANSFERASE 29 IU/L (0-55); ALBUMIN 4.4 g/dL (3.5-5.0); ALBUMIN/GLOBULIN RATIO 1.5 (0.8-2.0); ALKALINE PHOSPHATASE 111 IU/L (40-150); ANION GAP 14.9 mmol/L (8-16); BLOOD UREA NITROGEN 12 mg/dL (7-26); BUN/CREATININE RATIO 14 (6-25); CALCIUM 9.5 mg/dL (8.4-10.2); CARBON DIOXIDE 22 mmol/L (22-29); CHLORIDE 104 mmol/L (98-107); CREATININE, SERUM 0.84 mg/dL (0.72-1.25); EST GLOMERULAR FILTRATION RATE > 60 ML/MIN (60-); GLUCOSE 81 mg/dL (74-118); POTASSIUM 3.9 mmol/L (3.5-5.1); SODIUM 137 mmol/L (136-145)
--- OUTSIDE RECORDS SUMMARY | 2018-10-28 07:37 | XMS REPORT | Clinical Summary ---
Author Author [facility] Organization [facility] Address Unknown Phone Unavailable Care Team Providers Care Assistant Unit Forester Name Role Phone Asked, No Pcp PCP [...] 600 mg tablet TAKE ONE (1) 0 201 TABLET(S) BY 8 MOUTH EVERY EIGHT HOURS [...] knee 11/25/2017 Office Visit Orthopedic Surgery after 10/27/2017 Family History Medical History Relation Name Comments [...] Comments Procedure Name Priority Date/Time Associated Diagnosis NV AN ELECTIVE Routine 12/15/2017 [address]WAY 11:06 [...] of left knee 8:53 AM CDT after 10/27/2017 Results * XR Chest 2 Vw (12/10/2017 3:23 PM CDT) Specimen Narrative Performed At EXAMINATION:XR CHEST 2 VW [facility] CLINICAL HISTORY: Z01.818 Encounter for other preprocedural examination, Shortness of breath, pre op clearance COMPARISON:02/23/2013 IMPRESSION: No active disease in the chest. Lungs are clear. Cardiomediastinal silhouette is within normal limits. No effusion or pneumothorax noted. Visualized osseous structures are intact. [facility]-[id number] Procedure Note Interface, Radiology Results Incoming - 12/10/2017 3:42 PM CDT EXAMINATION: XR CHEST 2 VW CLINICAL HISTORY: Z01.818 Encounter for other preprocedural examination, Shortness of breath, pre op clearance COMPARISON: 02/23/2013 IMPRESSION: No active disease in the chest. Lungs are clear. Cardiomediastinal silhouette is within normal limits. No effusion or pneumothorax noted. Visualized osseous structures are intact. [facility]-[id number] Performing Organization Address [facility] Phone Number [facility] [address] [place] [address] * ECG 12 lead (12/10/2017 2:16 PM CDT) Ventricular 83 [facility] rate Atrial rate 83 [facility] NV interval 136 [facility] QRSD interval 98 [facility] QT interval 374 [facility] QTC interval 439 [facility] P axis 1 53 [facility] QRS axis 1 69 [facility] T wave axis 26 [facility] EKG impression Normal sinus rhythm-Normal [facility] MUSE ECG-In automated comparison with ECG of 20-JAN-2014 11:29,-Questionable change in QRS axis- Specimen Performing Organization Address [facility] Phone Number [facility] [employer] [address] [place] [address] * Urine culture (12/10/2017 2:00 PM CDT) Pathologist [facility] Urine culture SEE COMMENTComment: [facility] Bacteriuria screen negative. OF PATHOLOGY AND GENOMIC MEDICINE Specimen Performing Organization Address City/[facility]/Zipcode Phone Number [facility] [address] [place] [address] PATHOLOGY AND GENOMIC MEDICINE * Urinalysis screen and microscopy, with reflex to culture (12/10/2017 1:43 PM CDT) Pathologist [facility] Specimen site Clean catch [facility] OF PATHOLOGY AND GENOMIC MEDICINE Color, UA Yellow [facility] OF PATHOLOGY AND GENOMIC MEDICINE Appearance, UA Clear [facility] OF PATHOLOGY AND GENOMIC MEDICINE Specific 1.029 1.001 - 1.035 [facility] gravity, OF PATHOLOGY AND GENOMIC MEDICINE pH, UA 5.0 5.0 - 8.5 [facility] OF PATHOLOGY AND GENOMIC MEDICINE Protein, UA Negative Negative [facility] OF PATHOLOGY AND GENOMIC MEDICINE Glucose, UA Negative Negative [facility] OF PATHOLOGY AND GENOMIC MEDICINE Ketones, UA Negative Negative [facility] OF PATHOLOGY AND GENOMIC MEDICINE Bilirubin, UA Negative Negative [facility] OF PATHOLOGY AND GENOMIC MEDICINE Blood, UA Small (A) Negative [facility] OF PATHOLOGY AND GENOMIC MEDICINE Nitrite, UA Negative Negative [facility] OF PATHOLOGY AND GENOMIC MEDICINE Urobilinogen, Negative <2.0 [facility] UA OF PATHOLOGY AND GENOMIC MEDICINE Leukocyte Negative Negative [facility] esterase, UA OF PATHOLOGY AND GENOMIC MEDICINE WBC, UA 1 0 - 1 /HPF [facility] OF PATHOLOGY AND GENOMIC MEDICINE RBC, UA 5 (A) 0 - 5 /HPF [facility] OF PATHOLOGY AND GENOMIC MEDICINE Bacteria, UA None seen None seen [facility] OF PATHOLOGY AND GENOMIC MEDICINE Yeast, UA None seen [facility] OF PATHOLOGY AND GENOMIC MEDICINE Yeast with None seen [facility] pseudohyphae, OF PATHOLOGY UA AND GENOMIC MEDICINE Calcium oxalate Few [facility] crystals, UA OF PATHOLOGY AND GENOMIC MEDICINE Specimen Urine Performing Organization Address City/State/Zipcode Phone Number [facility] [address] [place] [address] PATHOLOGY AND GENOMIC MEDICINE * Estimated GFR (12/10/2017 1:43 PM CDT) Pathologist [facility] GFR Non Af Amer >90 mL/min/1.73 m2 [facility] OF PATHOLOGY AND GENOMIC MEDICINE GFR Af Amer >90 mL/min/1.73 m2 [facility] Comment: OF PATHOLOGY Chronic kidney disease: <60 AND GENOMIC mL/min/1.73m2 MEDICINE Kidney failure: <15 mL/min/1.73m2 The estimated GFR is calculated from the IDMS-traceable Modification of Diet in Renal Disease Equation. The accuracy of the calculation is poor when the creatinine is normal. Calculated values >90 mL/min/1.73m2 are not reported. This equation has not been validated in children (<18 years), women, the elderly (>70 years), or ethnic groups other than Caucasians and Americans. Specimen Plasma specimen Performing Organization Address City/[facility] Phone Number [facility] [address] [place], [place] [id number] [place] [address] AND [facility] * Partial thromboplastin time, activated (12/10/2017 1:43 PM CDT) PTT 31.8 23.0 - 36.0 sec [facility] Comment: OF PATHOLOGY PTT therapeutic range for AND GENOMIC unfractionated heparin is MEDICINE 61.0-112.0 seconds which corresponds to Anti-Xa 0.3-0.7 U/ml. Note:Change in Panic Value The PTT Panic Value is changing from 110 sec. to 100 sec. due to new instrumentation and reagents. Correlation studies have been performed to validate this result. Specimen Blood Performing Organization Address [facility] Phone Number [facility] [phone] [place] [address] AND [facility] * Prothrombin time with INR (12/10/2017 1:43 PM CDT) Prothrombin 12.8 12.0 - 15.0 sec [facility] time OF PATHOLOGY AND [facility] INR 0.95 0.92 - 1.12 [facility] Comment: OF PATHOLOGY For patients on anticoagulant AND GENOMIC therapy, reference ranges MEDICINE below: Indication: INR Value Treatment of Venous Thrombosis, 2.0-3.0 pulmonary emboli, or prophylaxis of a venous thrombosis, or systemic emboli. High dose, high risk patients 3.0-4.5 with mechanical valves. NOTE:INR values over 3.0 are sometimes associated with gastrointestinal hemorrhage, especially values over 4.0. Specimen Blood Performing Organization Address [facility] Phone Number [facility] [address] [phone] PATHOLOGY AND [facility] * CBC with platelet and differential (12/10/2017 1:43 PM CDT) Pathologist [facility] WBC 9.4 4.2 - 11.0 k/uL [facility] OF PATHOLOGY AND GENOMIC MEDICINE RBC 5.04 4.04 - 5.86 m/uL [facility] OF PATHOLOGY AND GENOMIC MEDICINE HGB 15.9 13.0 - 17.3 g/dL [facility] OF PATHOLOGY AND GENOMIC MEDICINE HCT 47.1 (H) 34.0 - 45.0 % [facility] OF PATHOLOGY AND GENOMIC MEDICINE MCV 93.5 80.0 - 98.0 fL [facility] OF PATHOLOGY AND GENOMIC MEDICINE MCH 31.5 27.0 - 34.0 pg [facility] OF PATHOLOGY AND GENOMIC MEDICINE MCHC 33.8 31.5 - 36.5 g/dL [facility] OF PATHOLOGY AND GENOMIC MEDICINE RDW - SD 44.6 37.0 - 51.0 fL [facility] OF PATHOLOGY AND GENOMIC MEDICINE MPV 10.2 7.4 - 10.4 fL [facility] OF PATHOLOGY AND GENOMIC MEDICINE Platelet count 209 150 - 400 k/uL [facility] OF PATHOLOGY AND GENOMIC MEDICINE Nucleated RBC 0.00 /100 WBC [facility] OF PATHOLOGY AND GENOMIC MEDICINE Neutrophils 72.1 (H) 36.0 - 66.0 % [facility] OF PATHOLOGY AND GENOMIC MEDICINE Lymphocytes 17.8 (L) 24.0 - 44.0 % [facility] OF PATHOLOGY AND GENOMIC MEDICINE Monocytes 7.2 (H) 0.0 - 6.0 % [facility] OF PATHOLOGY AND GENOMIC MEDICINE Eosinophils 1.7 0.0 - 6.0 % [facility] OF PATHOLOGY AND GENOMIC MEDICINE Basophils 0.7 0.0 - 1.2 % [facility] OF PATHOLOGY AND GENOMIC MEDICINE Immature 0.5 0.0 - 1.0 % [facility] OF PATHOLOGY AND GENOMIC MEDICINE Specimen Blood Performing Organization Address City/State/Zipcode Phone Number [facility] [address] [place] [address] PATHOLOGY AND GENOMIC MEDICINE * Comprehensive metabolic panel (12/10/2017 1:43 PM CDT) [facility] Sodium 139 135 - 150 mEq/L [facility] OF PATHOLOGY AND GENOMIC MEDICINE Potassium 3.8 3.5 - 5.0 mEq/L [facility] OF PATHOLOGY AND GENOMIC MEDICINE Chloride 103 98 - 112 mEq/L [facility] OF PATHOLOGY AND GENOMIC MEDICINE CO2 25 24 - 31 mmol/L [facility] OF PATHOLOGY AND GENOMIC MEDICINE Anion gap 11@ANIO 7 - 15 mEq/L [facility] OF PATHOLOGY AND GENOMIC MEDICINE BUN 15 7 - 18 mg/dL [facility] OF PATHOLOGY AND GENOMIC MEDICINE Creatinine 0.90 0.70 - 1.20 mg/dL [facility] OF PATHOLOGY AND GENOMIC MEDICINE Glucose 134 (H) 65 - 100 mg/dL [facility] OF PATHOLOGY AND GENOMIC MEDICINE Calcium 9.0 8.3 - 10.2 mg/dL [facility] OF PATHOLOGY AND GENOMIC MEDICINE Protein 7.0 6.3 - 8.3 g/dL [facility] OF PATHOLOGY AND GENOMIC MEDICINE Albumin 4.1 3.5 - 5.0 g/dL [facility] OF PATHOLOGY AND GENOMIC MEDICINE A/G ratio 1.4 0.7 - 3.8 [facility] OF PATHOLOGY AND GENOMIC MEDICINE Alkaline 103 0 - 129 U/L [facility] phosphatase OF PATHOLOGY AND GENOMIC MEDICINE AST 34 10 - 50 U/L [facility] OF PATHOLOGY AND GENOMIC MEDICINE ALT 47 5 - 50 U/L [facility] OF PATHOLOGY AND GENOMIC MEDICINE Total bilirubin 0.4 0.2 - 1.2 mg/dL [facility] OF PATHOLOGY AND GENOMIC MEDICINE Specimen Plasma specimen Performing Organization Address City/State/[facility] Phone Number [facility] [address] [place] [address] PATHOLOGY AND GENOMIC MEDICINE * XR Knee 4+ Vw Left (11/25/2017 8:53 AM CDT) Specimen Narrative Performed At [facility] Weightbearing AP and PA x-rays on both knees with a lateral x-ray of the left knee: There is evidence of an ACL reconstruction but there is no hardware in either the tibia or femur. Tunnels appear to be well positioned. There is very minimal arthritic change with well-maintained joint space Performing Organization Address City/State/Zipcode Phone Number [facility] [address] [place] [address] after 10/27/2017 Insurance Type Payer Benefit Subscriber ID Effective Phone Address Plan / Dates Group Workers Comp WORKERS COMP ABERCROMBI xxxxxxx [id number] MCDERMOTT Present & W/C Advance Directives Patient has advance care planning documents on file. For more information, demetrice conroy contact: Olu Cates [address] [place] [address]
[2018-10-28 10:30] VITALS: BP 106/59
--- NOTE | 2018-10-28 10:50 | Operative Report ---
DATE OF PROCEDURE: 10/28/2018 SURGEON: Odilon Cleveland MD PREOPERATIVE DIAGNOSIS: History of bladder cancer. POSTOPERATIVE DIAGNOSIS: History of bladder cancer. OPERATION PERFORMED: Cystoscopy. ANESTHESIA: General. INDICATIONS: This patient is a 48-year-old white male, who was found to have a bladder cancer in April 2018. It was resected transurethrally. It was superficial, well differentiated and noninvasive. The patient now returns for his second cystoscopy on a quarterly basis for followup on his bladder cancer. For further details, please refer to the history and physical. The procedure was done in following fashion. PROCEDURE IN DETAIL: The patient was taken to the operating room, placed under general anesthesia and dressed and draped with Hibiclens in lithotomy position in usual fashion. The 22-Sinhala Olympus cystoscope was inserted using the 30-degree oblique lens and video camera attachment. No urethral strictures were encountered. The sphincter and verumontanum were intact. The prostate was estimated at about 15-20 g. Clear efflux was seen from both ureteral orifices. The bladder had minimal trabeculation, no bladder tumors or bladder stones were identified. The bladder was also inspected using the blue light as well and there was no evidence of recurrent cancer. The bladder was emptied and cystoscope withdrawn. The patient tolerated procedure well and left the operating room in good condition. He will have return appointment to see me again in three months for followup cystoscopy. Odilon Cleveland MD [facility] /[id number]
== END | disposition home or self-care (01) ==
LOC: OR 07:35
PROVIDERS: ATTEND Urology
DX: Z85.51 Personal history of malignant neoplasm of bladder (principal); N39.41 Urge incontinence; I10 Essential (primary) hypertension; K21.9 Gastro-esophageal reflux disease without esophagitis; K42.9 Umbilical hernia without obstruction or gangrene; Z82.61 Family history of arthritis; Z80.1 Family history of malignant neoplasm of trachea, bronchus and lung; Z80.42 Family history of malignant neoplasm of prostate; Z80.8 Family history of malignant neoplasm of other organs or systems; Z82.49 Family history of ischemic heart disease and other diseases of the circulatory system; Z01.810 Encounter for preprocedural cardiovascular examination; Z01.812 Encounter for preprocedural laboratory examination
CPT/HCPCS: 36415; 52000; 80053; 85025; 85610; 85730; 93005; J1100; J2001; J2250; J2405; J2704; J3010

== ENCOUNTER → 2019-09-21 | Day surgery (SDC) | payer OTHER ==
[2019-09-18 12:36] LABS: BASOPHILS # (AUTO) 0.1 (0.0-0.1); BASOPHILS % 0.9 % (0.0-1.0); EOSINOPHILS # (AUTO) 0.2 (0.0-0.4); EOSINOPHILS % 2.2 % (0.0-6.0); HEMATOCRIT 46.7 % (38.2-49.6); HEMOGLOBIN 15.7 g/dL (14.0-18.0); LYMPHOCYTES # (AUTO) 1.7 (1.0-3.2); LYMPHOCYTES % 21.6 % (18.0-39.1); MEAN CORPUSCULAR HEMOGLOBIN 30.7 pg (28-32); MEAN CORPUSCULAR HGB CONC 33.6 g/dL (31-35); MEAN CORPUSCULAR VOLUME 91.4 fL (81-99); MONOCYTES # (AUTO) 0.6 (0.2-0.8); MONOCYTES % 7.6 % (4.4-11.3); NEUTROPHILS # (AUTO) 5.1 (2.1-6.9); NEUTROPHILS % 67.2 % (38.7-80.0); PLATELET COUNT 210 x10e3/uL (140-360); RED BLOOD COUNT 5.11 x10e6/uL (4.3-5.7); RED CELL DISTRIBUTION WIDTH 13.7 % (11.7-14.4)
[2019-09-18 12:59] LABS: ANION GAP 13.8 mmol/L (8-16); BLOOD UREA NITROGEN 12 mg/dL (7-26); BUN/CREATININE RATIO 12 (6-25); CALCIUM 9.4 mg/dL (8.4-10.2); CARBON DIOXIDE 23 mmol/L (22-29); CHLORIDE 107 mmol/L (98-107); CREATININE, SERUM 1.03 mg/dL (0.72-1.25); EST GLOMERULAR FILTRATION RATE > 60 ML/MIN (60-); GLUCOSE 111 mg/dL (74-118); POTASSIUM 3.8 mmol/L (3.5-5.1); SODIUM 140 mmol/L (136-145)
[~2019-09-21] MED LIST changes: -CEFOXITIN 1GM/ D5W 50ML 50 ML IV ONE; +CEFTRIAXONE SOD 1 GM/NS 50 ML 50 ML IV ONE; +ETOMIDATE 2 MG/ML 10 ML INJ IV ONE; +OXYBUTYNIN CHLOR5 MG PO; -PROPOFOL IV EMULSION 10 MG/ML 20 ML VIAL ONE
[2019-09-21 09:25] VITALS: BP 125/89
--- NOTE | 2019-09-21 10:02 | Operative Report ---
DATE OF PROCEDURE: 09/21/2019 SURGEON: Martell Lala MD PREOPERATIVE DIAGNOSIS: History of transitional cell carcinoma of the bladder. POSTOPERATIVE DIAGNOSIS: History of transitional cell carcinoma of the bladder. OPERATIVE PROCEDURES PERFORMED: 1. Cystoscopy. 2. Bladder biopsy. ANESTHESIA: General anesthesia. ESTIMATED BLOOD LOSS: Minimal. INDICATIONS: Mr. Jonathan Calvin is a 49-year-old man with a prior history of low-grade superficial TCC bladder tumor, who now presents for surveillance cystoscopy. DESCRIPTION OF PROCEDURE: The patient was brought into the operative room, placed in supine position and after initiation of general anesthesia, was placed in dorsal lithotomy position and prepped and draped in the usual sterile fashion. Cystourethroscopy was performed using 21-[place] Islander cystoscope. The anterior and posterior urethra were noted to be normal. The prostate was normal in size, shape, and configuration. The bladder was entered without difficulty. Upon entrance into the bladder, the ureteral orifices were in normal anatomical position and produce clear efflux. There were no mucosal lesions identified with the bladder filled or empty. There was normal capillary blood supply seen throughout. Biopsies were taken from the posterior wall and the right and left lateral wall using the cold cup bladder biopsy forceps. These biopsy sites were then fulgurated using the Bugbee electrode. There was no active bleeding seen at the end of the procedure and again no lesions noted. A small amount of the fluid was left in the bladder and the cystoscope and sheath were removed. The patient was returned to supine position and anesthesia was reversed. He was transferred to a bed and taken to the postanesthesia care unit in good condition. Of note, the needle and instrument count was correct at the conclusion of the case. Martell Lala MD [facility] /[id number]
== END | disposition home or self-care (01) ==
LOC: OR 06:48
PROVIDERS: ATTEND Urology
DX: D49.4 Neoplasm of unspecified behavior of bladder (principal); Z85.51 Personal history of malignant neoplasm of bladder; N30.20 Other chronic cystitis without hematuria; N20.0 Calculus of kidney; H91.90 Unspecified hearing loss, unspecified ear; G47.33 Obstructive sleep apnea (adult) (pediatric); I10 Essential (primary) hypertension; K21.9 Gastro-esophageal reflux disease without esophagitis; K44.9 Diaphragmatic hernia without obstruction or gangrene; Z01.810 Encounter for preprocedural cardiovascular examination; Z01.812 Encounter for preprocedural laboratory examination; Z11.59 Encounter for screening for other viral diseases; Z87.891 Personal history of nicotine dependence
CPT/HCPCS: 36415; 52214; 80048; 85025; 87635; 88305; 93005; J0696; J1100; J2001; J2405; J2250; J3010

== ENCOUNTER → 2021-04-17 | Day surgery (SDC) | payer OTHER ==
[2021-04-15 08:37] LABS: BASOPHILS # (AUTO) 0.1 (0.0-0.1); BASOPHILS % 1.1 % (0.0-1.0); EOSINOPHILS # (AUTO) 0.2 (0.0-0.4); EOSINOPHILS % 2.7 % (0.0-6.0); HEMATOCRIT 49.2 % (38.2-49.6); HEMOGLOBIN 16.5 g/dL (14.0-18.0); LYMPHOCYTES # (AUTO) 1.9 (1.0-3.2); LYMPHOCYTES % 26.6 % (18.0-39.1); MEAN CORPUSCULAR HEMOGLOBIN 31.3 pg (28-32); MEAN CORPUSCULAR HGB CONC 33.5 g/dL (31-35); MEAN CORPUSCULAR VOLUME 93.4 fL (81-99); MONOCYTES # (AUTO) 0.7 (0.2-0.8); MONOCYTES % 9.3 % (4.4-11.3); NEUTROPHILS # (AUTO) 4.2 (2.1-6.9); NEUTROPHILS % 59.6 % (38.7-80.0); PLATELET COUNT 205 x10e3/uL (140-360); RED BLOOD COUNT 5.27 x10e6/uL (4.3-5.7); RED CELL DISTRIBUTION WIDTH 13.2 % (11.7-14.4)
[2021-04-15 09:26] LABS: ANION GAP 13.4 mmol/L (8-16); CALCIUM 9.7 mg/dL (8.4-10.2); CREATININE, SERUM 0.98 mg/dL (0.72-1.25); POTASSIUM 4.4 mmol/L (3.5-5.1)
[~2021-04-17] MED LIST changes: +CEFTRIAXONE 1 GM VIAL ONE; -CEFTRIAXONE SOD 1 GM/NS 50 ML 50 ML IV ONE; +DEXAMETHASONE SOD PHOS INJ 4 MG/ML SDV ONE; -DEXAMETHASONE SOD PHOS INJ 4 MG/ML VIAL ONE; +EPHEDRINE SULFATE INJ 50 MG/ML VIAL ONE; -ETOMIDATE 2 MG/ML 10 ML INJ IV ONE; +IOPAMIDOL 300MG/ML 50ML INFUS..BTL IV ONE; -ONDANSETRON HCL INJ 2MG/ML 2ML 2 MG/ML VIAL ONE; +POVIDONE IODINE 0.05% 0.05 % ML PO ONE; +PROPOFOL IV EMULSION 10 MG/ML 20 ML VIAL ONE; +SODIUM CHLORIDE 0.9% 50ML 50 ML ONE
[2021-04-17 10:12] VITALS: BP 125/92
== END | disposition home or self-care (01) ==
LOC: OR 07:11
PROVIDERS: ATTEND Urology
DX: Z08 Encounter for follow-up examination after completed treatment for malignant neoplasm (principal); Z85.51 Personal history of malignant neoplasm of bladder; N30.80 Other cystitis without hematuria; N32.89 Other specified disorders of bladder; G47.33 Obstructive sleep apnea (adult) (pediatric); I10 Essential (primary) hypertension; E66.9 Obesity, unspecified; K21.9 Gastro-esophageal reflux disease without esophagitis; Z01.810 Encounter for preprocedural cardiovascular examination; Z01.812 Encounter for preprocedural laboratory examination; Z01.818 Encounter for other preprocedural examination; Z20.822 Contact with and (suspected) exposure to COVID-19; Z79.899 Other long term (current) drug therapy; Z68.36 Body mass index [BMI] 36.0-36.9, adult; Z87.891 Personal history of nicotine dependence; Z80.42 Family history of malignant neoplasm of prostate
CPT/HCPCS: 36415; 52214; 71046; 80048; 85025; 88305; 93005; J0696; J1100; J2001; J2250; J2704; J3010; U0002